=== PATIENT | male | born 1945 | race Caucasian/White ===

== ENCOUNTER 2022-12-17 13:02 | Emergency (ER) | payer MEDICARE, SELFPAY ==
[2022-12-17] VITALS (8 sets, daily range): BP systolic 127–145; BP diastolic 76–108; PULSE 86–95; RESP 16; TEMP 36.4; O2SAT 97–100; BMI 25.8
--- NOTE | 2022-12-17 13:18 | DI.CT.S_ITS ---
PROCEDURE: CT HEAD/BRAIN WO CON INDICATIONS: fall with head injury, on eliquis TECHNIQUE: Noncontrast 4.5 mm thick angled axial sections acquired from the foramen magnum to the vertex, with coronal and sagittal reformats. For radiation dose reduction, the following was used: automated exposure control, adjustment of mA and/or kV according to patient size. COMPARISON: None. FINDINGS: Image quality: Excellent. CSF spaces: Basal cisterns are patent. No extra-axial fluid collections. Ventricles are normal in size and shape. Brain: No midline shift. No intracranial masses or hemorrhage. [place]-white matter interface is normal. Skull and face: Calvarium and visualized facial bones are intact, without suspicious lesions. Right frontal scalp hematoma Sinuses: Visualized sinuses and mastoids are clear. IMPRESSION: Right frontal scalp hematoma without skull fracture or intracranial hemorrhage Atrophy and chronic ischemic change Approved by: Emre Oneal M.D. on 12/17/2022 at 13:39
--- NOTE | 2022-12-17 13:18 | DI.CT.S_ITS ---
PROCEDURE: CT CERVICAL SPINE WO CON INDICATIONS: fall with head injury TECHNIQUE: Noncontrast 3 mm thick sections acquired from the skull base to the T4 level. Sagittal and coronal reformats were then constructed. For radiation dose reduction, the following was used: automated exposure control, adjustment of mA and/or kV according to patient size. COMPARISON: None. FINDINGS: Image quality: Excellent. Bones: No fractures or dislocations. Visualized superior ribs are intact. Disc space narrowing and hypertrophic facet joints in the mid cervical spine Soft tissues: Prevertebral soft tissues are normal in thickness. No paravertebral hematomas. No apical pneumothoraces. IMPRESSION: Degenerative disc disease and arthropathy without fracture or traumatic malalignment Approved by: Emre Oneal M.D. on 12/17/2022 at 13:47
[2022-12-17] MEDS: LIDOCAINE 2% W/EPI INJ 20 ML (13:24)
--- NOTE | 2022-12-17 13:45 | ED.FALL ---
HPI - Fall General Chief Complaint: Trauma Stated Complaint: Head Inj/ Modified Trauma Time Seen by Provider: 12/17/22 13:10 Source: EMS Mode of arrival: EMS History of Present Illness HPI Narrative: 77-year-old male former smoker with history of atrial fibrillation on anticoagulation presents by EMS for evaluation of injury suffered as a consequence of a ground level fall. He is activated as a modified trauma given head injury on blood thinners. He states that he was walking up the [place] docked to get on the boat when he tripped and fell forward, striking his head on the guard rail. He denies loss of consciousness and has full recall of the event. He denies any blurred vision or trouble with speech. He denies any neck or back pain and is otherwise well and free of complaint. He denies any prodromal symptoms such as dizziness, weakness or lightheadedness. He has he 4 cm deep laceration on his central forehead that was bleeding significantly, having saturated multiple gauze bandages prior to his arrival by EMS. His last tetanus was in 2008. Related Data Previous Rx's Medication Instructions Recorded cephalexin 500 mg capsule 500 mg PO Q6H 7 days #28 caps 12/17/22 cephalexin 500 mg capsule 500 mg PO Q6H 7 days #28 caps 12/17/22 Allergies Allergy/AdvReac Type Severity Reaction Status Date / Time No Known Drug Allergies Allergy Verified 12/17/22 13:15 Review of Systems Review of Systems Narrative: GENERAL: See HPI HEENT: Denies sinus pain, ear pain, sore throat, difficulty swallowing, dizziness. RESPIRATORY: Denies dyspnea, cough, wheezing, hemoptysis, sputum. CARDIOVASCULAR: Denies chest pain, palpitations, orthopnea, edema, GASTROINTESTINAL: Denies nausea, vomiting, abdominal pain, diarrhea, constipation, melena. : Denies dysuria, frequency, incontinence, hematuria, urinary retention. MUSCULOSKELETAL: denies weakness, joint pain, or bony pain SKIN: Denies rash, skin lesions, or other NEUROLOGIC: Denies weakness, headache, numbness, change in speech, confusion, seizures, incoordination. PSYCHIATRIC: No concerning psychosocial issues. 12 point review of systems is negative except for those stated above Patient History Social History Smoking Status: Former smoker Smoking Status: Former smoker tobacco type: cigarettes alcohol intake frequency: 0-2 drinks per day Substance Use Type: does not use Exam Narrative Exam Narrative: GENERAL: [77] year old patient appears stated age. Well-developed patient, in mild distress. GCS 15 HEAD: 4 cm deep laceration on forehead with active arterial bleeding, no other contusion or abrasion, no evidence of depressed skull fracture EYES: Pupils equal round and reactive. No hyphema Extraocular motions intact. No scleral icterus. No injection or drainage. ENT: Nose without bleeding, purulent drainage. No nasal septal hematoma, throat without erythema, tonsillar hypertrophy or exudate. Airway patent. NECK: Trachea midline. Non tender CARDIOVASCULAR: Regular rate and rhythm without murmurs, gallops, or rubs. RESPIRATORY: Clear to auscultation. Breath sounds equal bilaterally. No wheezes, rales, or rhonchi. GASTROINTESTINAL: Abdomen soft, non-tender, nondistended. EXTREMITIES: No edema or joint tenderness. BACK: Nontender without deformity or crepitance. No flank tenderness. NEURO: AOx3. SKIN: No rash or erythema of visible areas Initial Vital Signs Initial Vital Signs: Vital Signs Pulse Rate 95 H 12/17/22 13:04 Pulse Oximetry 97 12/17/22 13:04 Procedures Laceration Repair Laceration 1: Site: face Description: irregular Depth: involves muscle layer Local Anesthetic: lidocaine 2% and with epi Amount of anesthesia used (mL): 6 Pre-repair: wound explored, deep structures intact and cleansed with chlorhexadine Skin layer closed with: nylon Skin layer suture size: 4-0 Number of sutures: 8 Technique: simple, interrupted Subcutaneous layer closed with: vicryl Subcutaneous layer suture size: 4-0 Number of sutures: 2 Technique: simple, interrupted Course Orders Ordered: ED Orders 12/17/22 13:18 CT cervical spine wo con Stat CT head/brain wo con Stat Discontinued Medications Acetaminophen (Acetaminophen 325 Mg Tablet) 975 mg PO NOW ONE Stop: 12/17/22 14:19 Last Admin: 12/17/22 14:22 Dose: 975 mg Documented By: AIDA Cefazolin Sodium (Cephalexin 250 Mg Cap Prepack) 1 bottle MISC SEEINSTR ONE Stop: 12/17/22 15:06 Diphtheria/Tetanus/Acell Pertussis (Tet,Diph,Pertuss(Acell),Vac/Pf 0.5 Ml Syringe) 0.5 ml IM .ONCE ONE Stop: 12/17/22 14:26 Last Admin: 12/17/22 14:44 Dose: 0.5 ml Vital Signs Vital signs: Vital Signs - 8 hr 12/17/22 13:05 12/17/22 13:04 12/17/22 13:30 Temperature 97.5 F L Pulse Rate 95 H 95 H 86 Respiratory Rate 16 Blood Pressure 139/76 145/84 H Pulse Oximetry 100 97 Oxygen Delivery Method Room Air Room Air 12/17/22 13:35 12/17/22 13:35 12/17/22 14:00 Temperature Pulse Rate 91 H 91 H Respiratory Rate Blood Pressure 141/76 H Pulse Oximetry 99 100 Oxygen Delivery Method Room Air 12/17/22 14:24 12/17/22 14:25 12/17/22 14:30 Temperature Pulse Rate Respiratory Rate Blood Pressure 140/108 H 127/76 Pulse Oximetry 99 Oxygen Delivery Method MDM - Fall MDM Narrative Medical decision making narrative: [77] year old patient presents with Multiple etiologies for patient's symptoms considered including, but not limited to: [Intracranial hemorrhage versus fracture versus other] Prior Charts reviewed in our EMR Primary Historian: patient Imaging reviewed: CT Head/ Cspine without acute findings Patient's symptoms improved over duration of stay with above-stated therapies. Findings and discharge diagnosis discussed with patient/family followed by verbalization of understanding Return precautions discussed with patient/family whom verbalize understanding of diagnosis and plan Discharge Plan Departure Patient Disposition: Home Clinical Impression: Complex laceration of face Instructions: DI for Trauma Activity Restrictions/Additional Instructions: *You have been diagnosed with [forehead laceration ] *What to do: *Please continue to take your regular medications as directed. [ x] New medication prescriptions sent to your pharmacy: [ [facility] [ ] New medication written as a paper prescription [ ] No new medications given * Please keep the wound clean and dry to the best of your ability. Please monitor for signs of infection such as redness to the skin or increasing pain. Have the sutures/prisca removed by your doctor in about 7-10 days. If you are unable to get into your doctor, we would be happy to remove the sutures/prisca in that same timeframe. *If you do not have a primary care provider please contact the [facility] Resource line at [phone]. They will ask some questions about your medical history and help get you set up with a doctor in the community. *Return to Emergency Department if you should have any new, worsening or concerning symptoms, such as [fever greater than 101 F, shaking chills, worsening pain, persistent vomiting or other bothersome symptoms] Prescriptions: New cephalexin 500 mg capsule 500 mg PO Q6H 7 Days Qty: 28 0RF cephalexin 500 mg capsule 500 mg PO Q6H 7 Days Qty: 28 0RF Stand Alone Forms: Patient Portal/API
--- NOTE | 2022-12-17 13:50 | PC.NURSE ---
Dr. Kate applied 8 stitches to patients head, bleeding controlled. Patient denies having forehead pain, his neck is sore from the fall. Pt able to move his neck with no complications. Patient tolerated procedure. Wound wrapped with nonadhesive gauze.
[2022-12-17] MEDS: ACETAMINOPHEN 325 MG TABLET 975 MG PO (14:22)
[2022-12-17] MEDS: TET,DIPH,PERTUSS(ACELL),VAC/PF 0.5 ML SYRINGE IM (14:44)
[2022-12-17] MEDS: cephALEXin 250 MG CAP PREPACK 1 BOTTLE MISC (15:13)
--- NOTE | 2022-12-19 12:00 | PC.NURSE ---
Received phone call from pt's stating they were having difficulty filling prescription as it was called into an [facility] first and was filled so [facility] could not fill it. Spoke with [facility], they will reverse, spoke with [facility], they will fill. Called back and she verbalized understanding that prescription will be filled at [facility] [place]. Encouraged to f/u as needed and indicated and return for any needs, concerns, worsening of symptoms.
== END 2022-12-17 15:29 | disposition home or self-care (01) ==
PROVIDERS: Emergency Provider Emergency Medicine
DX: S01.81XA Laceration without foreign body of other part of head, initial encounter (principal); W18.30XA Fall on same level, unspecified, initial encounter; Z79.01 Long term (current) use of anticoagulants; Z23 Encounter for immunization
CPT/HCPCS: 13131; 70450; 72125; 90471; 99284; 90715

== ENCOUNTER 2022-12-26 14:08 | Emergency (ER) | payer MEDICARE, SELFPAY ==
[2022-12-26] VITALS (10 sets, daily range): BP systolic 96–146; BP diastolic 58–79; PULSE 82–94; RESP 18–26; TEMP 36.6; O2SAT 97–100; BMI 24.3
--- NOTE | 2022-12-26 14:44 | DI.CT.S_ITS ---
PROCEDURE: CT CERVICAL SPINE WO CON INDICATIONS: fall, hit head T-10 TECHNIQUE: Noncontrast 3 mm thick sections acquired from the skull base to the T4 level. Sagittal and coronal reformats were then constructed. For radiation dose reduction, the following was used: automated exposure control, adjustment of mA and/or kV according to patient size. COMPARISON: [facility], CT, CT CERVICAL SPINE WO CON, 12/17/2022, 13:27. FINDINGS: Image quality: Excellent. Bones: No fractures or dislocations. Multilevel degenerative changes of the spine with facet and uncovertebral arthropathy. Visualized superior ribs are intact. Soft tissues: Prevertebral soft tissues are normal in thickness. No paravertebral hematomas. No apical pneumothoraces. IMPRESSION: No acute fracture or traumatic listhesis. Degenerative changes of the cervical spine. Dictated by: Deniz Haro M.D. on 12/26/2022 at 16:24 Approved by: Deniz Haro M.D. on 12/26/2022 at 16:27
--- NOTE | 2022-12-26 14:44 | DI.CT.S_ITS ---
PROCEDURE: CT HEAD/BRAIN WO CON INDICATIONS: fall, hit head T-10 TECHNIQUE: Noncontrast 4.5 mm thick angled axial sections acquired from the foramen magnum to the vertex, with coronal and sagittal reformats. For radiation dose reduction, the following was used: automated exposure control, adjustment of mA and/or kV according to patient size. COMPARISON: [facility], CT, CT HEAD/BRAIN WO CON, 12/17/2022, 13:27. FINDINGS: Image quality: Excellent. CSF spaces: Basal cisterns are patent. No extra-axial fluid collections. The ventricles are symmetric in size and shape. Brain: No intracranial bleeds or masses. There is cerebral volume loss for age, with resultant ventricular and sulcal prominence. There are periventricular and deep white matter chronic small vessel ischemic changes. There is intracranial internal carotid artery atherosclerosis. Skull and face: Calvarium and visualized facial bones appear intact, without suspicious lesions. Decreased size of right frontal scalp hematoma. Bilateral lens replacements. Otherwise, the orbits are unremarkable. Sinuses: Visualized sinuses and mastoids are clear. IMPRESSION: No acute intracranial abnormalities. Dictated by: Deniz Haro M.D. on 12/26/2022 at 16:27 Approved by: Deniz Haro M.D. on 12/26/2022 at 16:29
--- NOTE | 2022-12-26 15:05 | ED_ITS ---
HPI - Head Injury General Chief complaint: Head Injury Stated complaint: Confusion, Motor control issues Time Seen by Provider: 12/26/22 14:44 Source: patient Mode of arrival: Wheelchair Limitations: no limitations History of Present Illness HPI Narrative: This is a 77-year-old male with history of cardiac stents and atrial fibrillation on Eliquis, anxiety and depression, dyslipidemia, hypertension and prostate cancer which metastasized to his back he is on Zytiga and prednisone daily for this who presents with confusion. Patient had a fall a week ago last Monday 9 days ago where he struck his head getting on or off 1 of the [employer] locally. He was seen had a head CT and had sutures. states in the last 2- 3 day he seemed confused. She states this is different. She states he forgot why they were visiting her their daughter on [place]. He has been forgetting things that he would typically no. She states he does not normally have memory issues. He denies headache, denies vision changes does have some persistent neck pain. Patient denies any chest pain or shortness of breath. No nausea or vomiting. He denies any numbness, tingling or weakness. He states he has been ambulating which he normally does with a cane. Denies any loss of bowel or bladder control. No GI or urinary symptoms. He was on Keflex for the laceration been completed this. states he is also been ambulating appropriately. No known drug allergies. Former tobacco user, occasional alcohol, no illicit. Patient lives in [place] in [place]. Sees Dr. Diaz through [facility] as his primary care. Related Data Allergies Allergy/AdvReac Type Severity Reaction Status Date / Time No Known Drug Allergies Allergy Verified 12/26/22 14:41 Review of Systems Review of Systems ROS Unobtainable: All systems reviewed & are unremarkable except as noted in HPI and below Patient History Social History Smoking Status: Former smoker Smoking Status: Former smoker tobacco type: cigarettes alcohol intake frequency: 0-2 drinks per day Substance Use Type: does not use Exam Narrative Exam Narrative: GEN: well nourished, well appearing male, alert and oriented to situation but does not recall the name of the town he is in, he guesses the [place] 1970, he can tell me that he lives in [place] which is the town they lived in before there current home, patient appears to be in mild distress. HEENT: Patient has healing laceration over the right scalp with sutures, patient also has a small amount of ecchymosis that is greenish discoloration that is periorbital on the right, pupils are equal round reactive to light, extraocular movements are intact, nares are clear, TMs are clear with no fluid, there is no conjunctival pallor. Throat is clear without any exudates, erythema, tonsillar enlargement or uvular deviation, no facial droop. HEART: Regular rate and rhythm without murmur, clicks, rubs. Pulses are equal in upper and lower extremities LUNGS:Lungs clear to auscultation, no wheezes, rales, crackles, chest moves symmetrically ABD:bowel sounds normal, soft, non-tender, no guarding, rebound, rigidity, no masses noted, no hepatosplenomegaly :No CVA tenderness MSCL: Non-tender, no muscle atrophy, muscles strength 5/5 upper and lower extremities, full range of motion, normal gait NEURO:CN 2-12 intact, sensation normal, Finger nose finger test normal, heel peraza test normal, romberg normal Initial Vital Signs Initial Vital Signs: Vital Signs Temperature 97.8 F 12/26/22 14:37 Pulse Rate 94 H 12/26/22 14:37 Respiratory Rate 18 12/26/22 14:37 Blood Pressure 96/58 L 12/26/22 14:37 Pulse Oximetry 97 12/26/22 14:37 Oxygen Delivery Method Room Air 12/26/22 14:37 Course Orders Ordered: ED Orders 12/26/22 14:44 CT cervical spine wo con Stat CT head/brain wo con Stat EKG-12 Lead Stat 12/26/22 15:18 Chest [XR chest 1V] Stat 12/26/22 15:35 CBC Auto Diff [Complete Blood Count AUTO DIFF] Stat CMP [Comprehensive Metabolic Panel] Stat Lipase Stat PTT Partial Thromboplastin Cresencio Stat Prothrombin Time INR Stat 12/26/22 16:37 Urine Culture Stat Vital Signs Vital signs: Vital Signs - 8 hr 12/26/22 14:37 12/26/22 14:54 12/26/22 14:55 Temperature 97.8 F Pulse Rate 94 H 85 Respiratory Rate 18 26 H Blood Pressure 96/58 L 121/67 Pulse Oximetry 97 99 Oxygen Delivery Method Room Air 12/26/22 14:55 12/26/22 15:00 12/26/22 15:00 Temperature Pulse Rate 84 82 Respiratory Rate 21 19 Blood Pressure 120/68 Pulse Oximetry 100 99 Oxygen Delivery Method 12/26/22 15:30 12/26/22 15:33 12/26/22 15:33 Temperature Pulse Rate 93 H 82 Respiratory Rate 22 22 Blood Pressure 146/79 H Pulse Oximetry 100 100 Oxygen Delivery Method 12/26/22 16:07 12/26/22 16:35 12/26/22 16:36 Temperature Pulse Rate 83 83 83 Respiratory Rate 18 Blood Pressure Pulse Oximetry 99 100 Oxygen Delivery Method 12/26/22 16:36 12/26/22 17:00 12/26/22 17:00 Temperature Pulse Rate 92 H Respiratory Rate 18 Blood Pressure 138/72 138/73 Pulse Oximetry 100 Oxygen Delivery Method MDM - Head Injury Lab Data 12/26/22 15:35 12/26/22 15:35 Labs: Lab Results 12/26/22 12/26/22 12/26/22 Range/Units 15:35 15:35 15:35 WBC 6.8 (4.5-11.0) X10^3/uL RBC 4.14 L (4.5-5.9) X10^6/uL Hgb 13.1 L (13.5-17.5) g/dL Hct 38.3 L (41-53) % MCV 92.5 (80-100) fL MCH 31.7 (26-34) PG MCHC 34.3 (30-36) % RDW 13.3 (11.6-14.8) % Plt Count 296 (150-400) X10^3/uL Neut % (Auto) 81.1 H (50-75) % Lymph % (Auto) 9.1 L (25-40) % [place] % (Auto) 9.0 (3-14) % Eos % (Auto) 0.2 L (2-4) % Baso % (Auto) 0.6 (0-2) % Neut # (Auto) 5500 (4963-6826) /uL Lymph # (Auto) 600 L (5522-8537) /uL [place] # (Auto) 600 (0-900) /uL Eos # (Auto) 0 (0-450) /uL Baso # (Auto) 0 (0-100) /uL PT 14.5 H (10.1-12.7) SECONDS INR 1.3 (0.9-1.3) APTT 36 (26-36) SECONDS Sodium 133 L (137-145) mmol/L Potassium 4.0 (3.4-5.1) mmol/L Chloride 95 L (98-107) mmol/L Carbon Dioxide 28 (22-32) mmol/L BUN 18 (9-20) mg/dL Creatinine 0.80 (0.66-1.25) mg/dL Estimated GFR > 60 (>60) mL/min BUN/Creatinine Ratio 22.5 H (6-22) Glucose 208 H (80-110) mg/dL Calcium 9.5 (8.4-10.2) mg/dL Total Bilirubin 0.5 (0.2-1.3) mg/dL AST 25 (17-59) IU/L ALT 24 (<50) IU/L Alkaline Phosphatase 84 (38-126) U/L Total Protein 7.0 (6.3-8.2) g/dL Albumin 4.4 (3.5-5.0) g/dL Globulin 2.6 (1.7-4.1) g/dL Albumin/Globulin Ratio 1.7 (1.0-2.8) Lipase 163 (23-300) U/L Urine Dip Bedside Urine Glucose Negative Bedside Urine Bilirubin - Negative Bedside Urine Ketone - Negative Urine Specific [place] 1.005 Bedside Urine Occult Blood - Negative Bedside Urine pH 7.5 Bedside Urine Protein - Negative Bedside Urine Urobilinogen - Negative Bedside Urine Nitrite - Negative Bedside Urine Leukocytes - Negative Esterase Imaging Data CT scan - head: Radiologist's Impression: [address] [address] [address] Scan Report Signed Patient: Layo Triana MR#: [id number] : 1945 Acct:[id number] Age/Sex: 77 / M Date of Service: 12/26/22 Loc: ED Accession Number: [id number] ?? Procedure: CT head/brain wo con Ordering Provider: Rayne Figueroa D.O. PROCEDURE:? CT HEAD/BRAIN WO CON ? INDICATIONS:? fall, hit head T-10 ? TECHNIQUE:? Noncontrast 4.5 mm thick angled axial sections acquired from the foramen magnum to the vertex, with coronal and sagittal reformats.? For radiation dose reduction, the following was used:? automated exposure control, adjustment of mA and/or kV according to patient size.? ? COMPARISON:? [facility], CT, CT HEAD/BRAIN WO CON, 12/17/2022, 13:27. ? FINDINGS:? Image quality:? Excellent.? ? CSF spaces:? Basal cisterns are patent.? No extra-axial fluid collections.? The ventricles are symmetric in size and shape.? ? Brain:? No intracranial bleeds or masses.? There is cerebral volume loss for age, with resultant ventricular and sulcal prominence.? There are periventricular and deep white matter chronic small vessel ischemic changes.? There is intracranial internal carotid artery atherosclerosis.? ? Skull and face:? Calvarium and visualized facial bones appear intact, without suspicious lesions.? Decreased size of right frontal scalp hematoma.? Bilateral lens replacements.? Otherwise, the orbits are unremarkable. ? Sinuses:? Visualized sinuses and mastoids are clear.? ? IMPRESSION:? No acute intracranial abnormalities. ? ? Dictated by: Deniz Haro M.D. on 12/26/2022 at 16:27 ? ? Approved by: Deniz Haro M.D. on 12/26/2022 at 16:29?? CT - cervical spine: Radiologist's Impression: [address] [address] [address] Scan Report Signed Patient: Layo Triana MR#: [id number] : 1945 Acct:[id number] Age/Sex: 77 / M Date of Service: 12/26/22 Loc: ED Accession Number: [id number] ?? Procedure: CT head/brain wo con Ordering Provider: Rayne Figueroa D.O. PROCEDURE:? CT HEAD/BRAIN WO CON ? INDICATIONS:? fall, hit head T-10 ? TECHNIQUE:? Noncontrast 4.5 mm thick angled axial sections acquired from the foramen magnum to the vertex, with coronal and sagittal reformats.? For radiation dose reduction, the following was used:? automated exposure control, adjustment of mA and/or kV according to patient size.? ? COMPARISON:? [facility], CT, CT HEAD/BRAIN WO CON, 12/17/2022, 13:27. ? FINDINGS:? Image quality:? Excellent.? ? CSF spaces:? Basal cisterns are patent.? No extra-axial fluid collections.? The ventricles are symmetric in size and shape.? ? Brain:? No intracranial bleeds or masses.? There is cerebral volume loss for ag e, with resultant ventricular and sulcal prominence.? There are periventricular and deep white matter chronic small vessel ischemic changes.? There is intracranial internal carotid artery atherosclerosis.? ? Skull and face:? Calvarium and visualized facial bones appear intact, without suspicious lesions.? Decreased size of right frontal scalp hematoma.? Bilateral lens replacements.? Otherwise, the orbits are unremarkable. ? Sinuses:? Visualized sinuses and mastoids are clear.? ? IMPRESSION:? No acute intracranial abnormalities. ? ? Dictated by: Deniz Haro M.D. on 12/26/2022 at 16:27 ? ? Approved by: Deniz Haro M.D. on 12/26/2022 at 16:29?? Chest x-ray: Radiologist's Impression: [place] [address] XRay Report Signed Patient: Layo Triana MR#: [id number] : 1945 Acct:[id number] Age/Sex: 77 / M Date of Service: 12/26/22 Loc: ED Accession Number: [id number] ?? Procedure: XR chest 1V Ordering Provider: Rayne Figueroa D.O. PROCEDURE:? XR CHEST 1V ? INDICATIONS:? prior fall, new confusion, cough ? TECHNIQUE:? One view of the chest was acquired.? ? COMPARISON:? None. ? FINDINGS:? ? Surgical changes and devices:? None.? ? Lungs and pleura:? Lungs are clear.? No pleural effusions or pneumothorax.? Elevation of the right hemidiaphragm.? Or ? Mediastinum:? Mediastinal contours appear normal.? Heart size is normal.? ? Bones and chest wall:? No suspicious bony lesions.? Overlying soft tissues appear unremarkable.? ? IMPRESSION:? No acute cardiopulmonary process. ? ? Dictated by: Deniz Haro M.D. on 12/26/2022 at 16:16 ? ? Approved by: Deniz Haro M.D. on 12/26/2022 at 16:16?? ECG Data Attestation: I personally reviewed and interpreted this ECG as follows: Interpretation: Sinus rhythm rate 84 OH 164 QRS 84 QTC 42. No acute ST elevation depression no linwood. MDM Narrative Medical decision making narrative: This is a 77-year-old male who presents with complaint of confusion with recent head injury. Patient had head CT on 12/17/[address] of the C-spine which were both negative. Patient has laceration which appears healing and sutures removed. Repeat head CT was obtained patient was complaining of some neck pain this is negative. He is had some mild cough so chest x-ray and lab work were included as well. No acute changes no obvious changes to his urine such as infection. did mention towards the end of his stay that he stopped drinking but that was approximately 10 days ago and we discussed he should have proceeded through DTs at this point and would be unlikely to start now, patient does not have any tachycardia, hypertension or other symptoms consistent with withdrawal. Patient is on multiple medications that could also contribute to his symptoms. Discussed with if he was having any symptoms immediately after could be secondary to concussion or TBI. Patient's thought it was more likely in the last 2 days. Discussed with patient and family they feel comfortable with discharge we will send urine culture but would like him to have short term follow-up for re-evaluation. They feel like and likely have him seen in the this week and very low threshold to return for evaluation. Discharge Plan Departure Patient Disposition: Home Clinical Impression: Confusion Instructions: DI for Closed Head Injury Activity Restrictions/Additional Instructions: Please follow up shortly for recheck. You do have a urine culture pending but your urine today was negative for signs of infection. Your imaging today does not show any bleed or other acute changes. Some of your home medications in combination can contribute to confusion. If you have recently stopped drinking alcohol this could also contribute. Please return for worsening symptoms, difficulty with ambulation, severe headaches, new vision changes, facial droop, new weakness, new chest pain or shortness of breath, persistent vomiting or other new or concerning changes. Referrals: Miscellaneous,[facility] [Non-Staff] - Stand Alone Forms: Patient Portal/API
--- NOTE | 2022-12-26 15:18 | DI.RAD.S_ITS ---
PROCEDURE: XR CHEST 1V INDICATIONS: prior fall, new confusion, cough TECHNIQUE: One view of the chest was acquired. COMPARISON: None. FINDINGS: Surgical changes and devices: None. Lungs and pleura: Lungs are clear. No pleural effusions or pneumothorax. Elevation of the right hemidiaphragm. Or Mediastinum: Mediastinal contours appear normal. Heart size is normal. Bones and chest wall: No suspicious bony lesions. Overlying soft tissues appear unremarkable. IMPRESSION: No acute cardiopulmonary process. Dictated by: Deniz Haro M.D. on 12/26/2022 at 16:16 Approved by: Deniz Haro M.D. on 12/26/2022 at 16:16
[2022-12-26 15:45] LABS: Add Manual Diff / Slide Review NO; Basophils Absolute Auto 0 /uL (0-100); Basophils Percent Auto 0.6 % (0-2); Eosinophils Absolute Auto 0 /uL (0-450); Eosinophils Percent Auto 0.2 % (2-4); Hematocrit 38.3 % (41-53); Hemoglobin 13.1 g/dL (13.5-17.5); Lymphocytes Absolute Auto 600 /uL (1100-4500); Lymphocytes Percent Auto 9.1 % (25-40); Mean Corpuscular HGB Conc 34.3 % (30-36); Mean Corpuscular Hemoglobin 31.7 PG (26-34); Mean Corpuscular Volume 92.5 fL (80-100); Monocytes Absolute Auto 600 /uL (0-900); Neutrophils Absolute Auto 5500 /uL (1500-7000); Neutrophils Percent Auto 81.1 % (50-75); Platelet Count 296 X10^3/uL (150-400); Red Blood Cell Count 4.14 X10^6/uL (4.5-5.9); Red Cell Distribution Width 13.3 % (11.6-14.8); White Blood Cell Count 6.8 X10^3/uL (4.5-11.0)
[2022-12-26 15:52] LABS: INR 1.3 (0.9-1.3); Prothrombin Time 14.5 SECONDS (10.1-12.7)
[2022-12-26 15:55] LABS: PTT Partial Thromboplastin Tim 36 SECONDS (26-36)
[2022-12-26 16:16] LABS: Alanine Aminotransferase 24 IU/L (<50); Albumin 4.4 g/dL (3.5-5.0); Albumin Globulin Ratio 1.7 (1.0-2.8); Alkaline Phosphatase 84 U/L (38-126); Aspartate Aminotransferase 25 IU/L (17-59); BUN Creatinine Ratio 22.5 (6-22); Bilirubin Total 0.5 mg/dL (0.2-1.3); Blood Urea Nitrogen 18 mg/dL (9-20); Calcium 9.5 mg/dL (8.4-10.2); Carbon Dioxide 28 mmol/L (22-32); Chloride 95 mmol/L (98-107); Estimated Glomerular Filt Rate > 60 mL/min (>60); Globulin 2.6 g/dL (1.7-4.1); Glucose 208 mg/dL (80-110); HEMOLYSIS < 15 (0-50); Lipase 163 U/L (23-300); Sodium 133 mmol/L (137-145)
--- NOTE | 2022-12-26 17:15 | PC.NURSE ---
[employer] note: This [employer] checked on pt. , pt. had pulled out IV, notified RN and wrapped the site with 2x2 and peytonan
== END 2022-12-26 17:30 | disposition home or self-care (01) ==
PROVIDERS: Emergency Provider Emergency Medicine
DX: R41.0 Disorientation, unspecified (principal); M54.2 Cervicalgia; S01.01XD Laceration without foreign body of scalp, subsequent encounter; W22.8XXD Striking against or struck by other objects, subsequent encounter; I10 Essential (primary) hypertension
CPT/HCPCS: 36415; 70450; 71045; 72125; 80053; 81003; 83690; 85025; 85610; 85730; 87086; 93005; 93010; 99282; 99284